=== PATIENT | female | born 1985 | race Caucasian/White ===

== ENCOUNTER 2017-07-06 19:00 | Outpatient (CLI) | payer OTHER ==
[~2017-07-06] VITALS: Ht 167.6 cm; Wt 67.5 kg
[~2017-07-06 19:00] MED LIST: ALPR1TAB7 PO; ESCI5SOL PO; HYDR-906 PO; NAPR-688 PO
[2017-07-06 19:37] VITALS: Ht 167.6 cm; Wt 67.5 kg
[2017-07-06 19:38] VITALS: BP 107/58; PULSE 74; RESP 18
[2017-07-06] MEDS ORDERED: PNV11TAB PO (19:43)
[2017-07-06] MEDS ORDERED: ACETAMINOPHEN 500 MG TAB PO STA (19:45)
[2017-07-06 20:23] LABS: BASOPHILS % 0.1 % (0.0-2.0); EOSINOPHILS # 0.1 10^3/ul (0.0-0.5); EOSINOPHILS % 0.6 % (0.0-7.0); HEMATOCRIT 31.6 % (37.0-47.0); HEMOGLOBIN 10.9 g/dl (12.0-16.0); LYMPHOCYTES # 1.6 10^3/ul (0.8-2.9); LYMPHOCYTES % 17.7 % (15.0-51.0); MEAN CORPUSCULAR HEMOGLOBIN 33.6 pg (29.0-33.0); MEAN CORPUSCULAR HGB CONC 34.5 g/dl (32.0-37.0); MEAN CORPUSCULAR VOLUME 97.5 fl (82.0-101.0); MEAN PLATELET VOLUME 9.1 fl (7.4-10.4); MONOCYTE # 0.6 10^3/ul (0.3-0.9); MONOCYTES % 6.4 % (0.0-11.0); NEUTROPHIL # 6.7 10^3/ul (1.6-7.5); NEUTROPHILS % 74.9 % (39.0-77.0); PLATELET COUNT 195 10^3/UL (140-415); RED BLOOD COUNT 3.24 10^6/ul (4.20-5.40); RED CELL DISTRIBUTION WIDTH 12.5 % (11.5-14.5)
[2017-07-06 20:25] LABS: ADD UMIC NO; UR ASCORBIC ACID NEGATIVE (NEGATIVE); UR BILIRUBIN (Dip) NEGATIVE (NEGATIVE); UR BLOOD (Dip) NEGATIVE (NEGATIVE); UR CLARITY CLEAR (CLEAR); UR COLOR STRAW (YELLOW); UR GLUCOSE (Dip) NEGATIVE (NEGATIVE); UR KETONES (Dip) NEGATIVE (NEGATIVE); UR LEUKOCYTE ESTERASE (Dip) NEGATIVE Leu/ul (NEGATIVE); UR NITRITE (Dip) NEGATIVE (NEGATIVE); UR SPECIFIC GRAVITY (Dip) 1.005 (1.003-1.030); UR TOTAL PROTEIN (Dip) NEGATIVE (NEGATIVE); UR UROBILINOGEN (Dip) NEGATIVE (NEGATIVE)
[2017-07-06 20:41] LABS: ALBUMIN 3.4 g/dl (3.3-4.9); ALBUMIN/GLOBULIN RATIO 0.97; BILIRUBIN,INDIRECT 0.2 mg/dl (0-1.1); BILIRUBIN,TOTAL 0.2 mg/dl (0.2-1.3); CALCIUM 9.4 mg/dl (8.4-10.2); CREATININE 0.57 mg/dl (0.44-1.00); POTASSIUM 3.9 mmol/L (3.5-5.1); TOTAL PROTEIN 6.9 g/dl (6.1-8.1)
--- NOTE | 2017-07-06 20:56 | RADRPT ---
PROCEDURE: Right upper quadrant abdominal ultrasound. CLINICAL INDICATION: Abdominal pain TECHNIQUE: Kingsley scale and color doppler ultrasound images of the right upper quadrant of the abdom en. COMPARISON: None FINDINGS: Pancreas: Visualized portions appear of normal echogenicity without focal lesions. Liver: Morphology: The right lobe of the liver is elongated measuring up to 17.8 cm which may reflect Ried el's lobe configuration. Contour:Normal, no evidence of nodularity. Echogenicity: Normal. Focal lesions:None. Main portal vein: Patent with hepatopetal flow. Biliary System: Gallbladder wall: Normal thickness. Gallstones: None. Intrahepatic bile ducts: Normal caliber. Common bile duct diameter (mm): 2.0 Kidneys: Right length (cm) : 12.6 Right cortical thickness: Normal. Echogenicity: Normal. Hydronephrosis: None. Renal calculi: None. Focal lesions: None. Free fluid/ascites: None. Abdominal aorta: Normal caliber of the visualized segments. Other findings: None. IMPRESSION: Normal gallbladder without gallstones. Normal examination. RPTAT: AADD .Edenilson Ricardo MD, MD Date Time Electronically viewed and signed by .Edenilson Ricardo MD, MD on 07/06/2017 20:56 .B/
--- NOTE | 2017-07-06 21:30 | PN ---
Triage Information Date/Time 07/06/172099 Reason for visit: RUQ pain Weeks of Gestation 19+6 /Para 2/0 Additional information Pt c/o RUQ pain starting 4hrs ago. Has been moving all weekend and feels pain is on the bone. Has not taken meds for pain. Worse with deep breathing. Denies recent cough/URI/trauma. +FM, denies LOF, VB or lower abdominal cramping. Eating and passing stools w/o difficulty. Denies dysuria, N/V Pain resolved completely in Triage after receiving Tylenol Objective Vital Signs Date Time Temp Pulse Resp B/P Pulse Ox O2 Delivery O2 Flow Rate FiO2 07/06/17 19:38 98.7 74 18 107/58 Room Air Heart Rate Comments doptones 143-161 Exam Gen: lying in bed, NAD Abd: soft, NTND Results/Medications Result Diagram: 07/06/17199907/06/171999 Results 24 hrs Laboratory Tests Test 07/06/17 19:45 07/06/17 20:00 Urine Color STRAW Urine Clarity CLEAR Urine pH 8.0 Urine Specific [place] 1.005 Urine Ketones NEGATIVE Urine Nitrite NEGATIVE Urine Bilirubin NEGATIVE Urine Urobilinogen NEGATIVE Urine Leukocyte Esterase NEGATIVE Urine Hemoglobin NEGATIVE Urine Glucose NEGATIVE Urine Total Protein NEGATIVE White Blood Count 9.0 Red Blood Count 3.24 L Hemoglobin 10.9 L Hematocrit 31.6 L Mean Corpuscular Volume 97.5 Mean Corpuscular Hemoglobin 33.6 H Mean Corpuscular Hemoglobin Concent 34.5 Red Cell Distribution Width 12.5 Platelet Count 195 Mean Platelet Volume 9.1 Neutrophils % 74.9 Lymphocytes % 17.7 Monocytes % 6.4 Eosinophils % 0.6 Basophils % 0.1 Nucleated Red Blood Cells % 0.0 Neutrophils # 6.7 Lymphocytes # 1.6 Monocytes # 0.6 Eosinophils # 0.1 Basophils # 0.0 Nucleated Red Blood Cells # 0.0 Sodium Level 139 Potassium Level 3.9 Chloride Level 109 Carbon Dioxide Level 24 Anion Gap 10 Blood Urea Nitrogen 8 Creatinine 0.57 Glucose Level 83 Calcium Level 9.4 Total Bilirubin 0.2 Direct Bilirubin 0.00 Indirect Bilirubin 0.2 Aspartate Amino Transf (AST/SGOT) 22 Alanine Aminotransferase (ALT/SGPT) 42 Alkaline Phosphatase 61 Total Protein 6.9 Albumin 3.4 Globulin 3.50 H Albumin/Globulin Ratio 0.97 Imaging Results PROCEDURE: Right upper quadrant abdominal ultrasound. CLINICAL INDICATION: Abdominal pain TECHNIQUE: Kingsley scale and color doppler ultrasound images of the right upper quadrant of the abdomen. COMPARISON: None FINDINGS: Pancreas: Visualized portions appear of normal echogenicity without focal lesions. Liver: Morphology: The right lobe of the liver is elongated measuring up to 17.8 cm which may reflect Enrrique's lobe configuration. Contour:Normal, no evidence of nodularity. Echogenicity: Normal. Focal lesions:None. Main portal vein: Patent with hepatopetal flow. Biliary System: Gallbladder wall: Normal thickness. Gallstones: None. Intrahepatic bile ducts: Normal caliber. Common bile duct diameter (mm): 2.0 Kidneys: Right length (cm) : 12.6 Right cortical thickness: Normal. Echogenicity: Normal. Hydronephrosis: None. Renal calculi: None. Focal lesions: None. Free fluid/ascites: None. Abdominal aorta: Normal caliber of the visualized segments. Other findings: None. IMPRESSION: Normal gallbladder without gallstones. Normal examination. Disposition: Discharge Assessment/Plan Hx and exam c/w costochondritis (as pt able to localize area of pain during exam although pain has resolved). No e/o gallstones or UTI S/p 1g PO Tylenol with complete resolution of pain. Pt instructed to use cool or warm compresses as she prefers and Tylenol prn FWB reassuring w/normal doppler tones SAB precautions reviewed Pt appropriate for d/c home. She will f/up as scheduled with Dr. Nuñez next month, sooner prn in OB triage Questions answered to patient's satisfaction prior to d/c home Work note given to excuse pt from work for today GURPREET KEANE MD Jul 06, 2017 21:30
== END 2017-07-06 21:30 | disposition home or self-care (01) ==
LOC: OBT 19:00 → L-D 19:00 → OBT 21:30
PROVIDERS: ATTEND Specialist
DX: O26.892 Other specified pregnancy related conditions, second trimester (principal); Z3A.19 19 weeks gestation of pregnancy; R10.11 Right upper quadrant pain
CPT/HCPCS: 76705; 80053; 81003; 85025; Z7610